=== PATIENT | female | born 2000 | race Hispanic/Latino ===

== ENCOUNTER 2023-11-03 17:21 | Emergency (ER) | payer SELFPAY ==
[2023-11-03 18:38] LABS: #Eosinphils 0.1 thou/uL (0.0-0.7); #Monocytes 0.8 thou/uL (0.11-0.59); #Neutrophils 4.5 thou/uL (1.40-6.50); %Basophils 0.1 % (0.0-1.0); %Eosinophils 1.2 % (0.0-10.0); %Lymphocytes 28.9 % (21.0-51.0); %Neutrophils 59.4 % (42.0-75.0); Hematocrit 39.8 % (36.0-47.0); Hemoglobin 13.5 g/dL (12.0-16.0); Mean Corpuscular HGB CONC 33.9 g/dL (32.0-36.0); Mean Corpuscular Hemoglobin 29.6 pg (27.0-31.0); Mean Corpuscular Volume 87.3 fl (78.0-98.0); Mean Platelet Volume 9.2 fL (7.4-10.4); Platelet Count 243 10x3/uL (130-400); RBC Distribution Width 12.2 % (11.5-14.5); Red Blood Cell (RBC) Count 4.56 mill/uL (4.20-5.40); White Blood Cell (WBC) Count 7.6 10x3/uL (4.8-10.8)
[2023-11-03 19:11] LABS: Bilirubin Negative (Negative); Blood, Urine 3+ (Negative); CAUTI Indications for Culture Pregnancy; Clarity Turbid (Clear); Glucose, Urine (Dipstick) Normal (Negative); Ketone, Urine Negative (Negative); Leukocyte 25 Leu/uL (Negative); Nitrite Negative (Negative); Protein, Urine (Dipstick) Negative (Neg-Trace); RBC/HPF Greater than 50 HPF (0-3); Specific Gravity, Urine 1.015 (1.002-1.036); Squamous Epithelial 0-3 HPF (0-3); Urobilinogen Normal mg/dL (Less than 2)
[2023-11-03 19:12] LABS: Bacteria/HPF Rare-Few HPF (None Seen); Urine Culture Reflex Yes Yes
== END 2023-11-03 20:57 | disposition home or self-care (01) ==
LOC: ERS 17:21
DX: O20.0 Threatened abortion (principal); Z3A.01 Less than 8 weeks gestation of pregnancy
CPT/HCPCS: 36415; 81001; 84702; 85025; 86850; 86900; 86901; 87086; 99284

== ENCOUNTER 2023-11-05 17:59 | Emergency (ER) | payer SELFPAY | END 2023-11-05 19:21 | disposition home or self-care (01) | LOC: ERS 17:59 | DX: O03.9 Complete or unspecified spontaneous abortion without complication (principal) | CPT/HCPCS: 36415; 84702; 99284 ==